=== PATIENT | female | born 1980 | race African-American/Black ===

== ENCOUNTER 2020-01-14 09:03 | Emergency (ER) | payer OTHER ==
[2020-01-14 09:10] VITALS: TEMP 98.5; BMI 24.7
--- NOTE | 2020-01-14 09:30 | PDOC ---
History of Present Illness - General Chief Complaint: Chest Pain Stated Complaint: LFT SHOULDER/ARM PAIN (DISCOMFORT) Time Seen by Provider: 01/14/20 09:28 - History of Present Illness Initial Comments: 01/14/20 10:06 HPI 39 y/o F hx of GERD, pituitary adenoma presenting to the ED with 1 week of chest pain. Pain occurs both at rest and with exertion, and is worse at night. Pt has great difficulty in describing what the pain feels like but denies that if feels like pressure, stabbing or like muscle cramps. Pain radiates to the patients left shoulder, back and upper left arm. she denies any shortness of breath, nausea, vomiting, diaphoresis, unilater leg swelling, hx of blood clots, ocp use. Patient denies HIDALGO, vision change, palpitations, cough, wheezing, orthopena, PND, leg swelling/pain, N/V, F,C, CP, SOB, urinary complaints, hematuria, BPR, abdominal pain, diarrhea, constipation, lightheadedness, weakness, sensory changes. PMHx: as noted above ROS: as noted SHx: Denies Etoh, IVDA, tobacco use Allergies: NKDA ROS: GENERAL/CONSTITUTIONAL: No fever or chills. No weakness. HEAD, EYES, EARS, NOSE AND THROAT: No change in vision. No ear pain or discharge. No sore throat. CARDIOVASCULAR: No chest pain or shortness of breath RESPIRATORY: No cough, wheezing, or hemoptysis. GASTROINTESTINAL: No nausea, vomiting, diarrhea or constipation. GENITOURINARY: No dysuria, frequency, or change in urination. MUSCULOSKELETAL: No joint or muscle swelling or pain. No neck or back pain. SKIN: No rash NEUROLOGIC: No headache, vertigo, loss of consciousness, or change in strength/sensation. ENDOCRINE: No increased thirst. No abnormal weight change HEMATOLOGIC/LYMPHATIC: No anemia, easy bleeding, or history of blood clots. ALLERGIC/IMMUNOLOGIC: No hives or skin allergy. PE: GENERAL: Awake, alert, and fully oriented, in no acute distress HEAD: No signs of trauma, normocephalic, atraumatic EYES: PERRLA, EOMI, sclera anicteric, conjunctiva clear ENT: Auricles normal inspection, hearing grossly normal, nares patent, oropharynx clear without exudates. Moist mucosa NECK: Normal ROM, supple, no lymphadenopathy, JVD, or masses LUNGS: No distress, speaks full sentences, clear to auscultation bilaterally HEART: Regular rate and rhythm, normal S1 and S2, no murmurs, rubs or gallops, peripheral pulses normal and equal bilaterally. MSK: ttp in left upper shoulder, no ttp of chest wall. ABDOMEN: Soft, nontender, normoactive bowel sounds. No guarding, no rebound. No masses EXTREMITIES : Normal inspection, Normal range of motion, no edema. No clubbing or cyanosis NEUROLOGICAL: Cranial nerves II through XII grossly intact. Normal speech, normal gait, no focal sensorimotor deficits SKIN: Warm, Dry, normal turgor, no rashes or lesions noted MDM DDx including but not limited to: acs, pe,pneumonia, Workup: labs, chest x-ray,ekg TX: Scores - HEART score -PERC; pt perc's out - EKG: normal sinus rhythm with sinus arrhythmia , HR 71bpm, WI 186ms, QRS 84ms, QTc 408ms ED course labs unremarkable CXR 2 views of the chest reveal clear well aerated lungs. sharp angles normal mediastinum and intact bones and soft tissues. no acute chest pathology meds: aspirin, tylenol Re-assessment: Pt feeling better after medications. 01/14/20 11:05 Past History - Medical History Allergies/Adverse Reactions: Allergies Allergy/AdvReac Type Severity Reaction Status Date / Time No Known Allergies Allergy Verified 01/14/20 09:07 COPD: No GI Disorders: Yes (GERD) HTN: Yes - Reproductive History Is Patient Now?: No - Immunization History Immunization Up to Date: Yes - Psycho-Social/Smoking History Smoking History: Never smoked - Substance Abuse Hx (Audit-C & DAST Scrn) How often the patient has a drink containing alcohol: Never Score: In Men: 4 or > Positive; In Women: 3 or > Positive: 0 Screen Result (Pos requires Nsg. Audit-10AR): Negative In the last yr the pt used illegal drug/Rx for NonMed reason: No Score: Yes response is considered Positive: 0 Screen Result (Positive result requires Nsg. DAST-10): Negative *Physical Exam - Vital Signs Last Vital Signs Temp Pulse Resp BP Pulse Ox 98.5 F 85 18 149/97 100 01/14/20 09:08 01/14/20 09:08 01/14/20 09:08 01/14/20 09:08 01/14/20 09:08 ED Treatment Course - LABORATORY CBC & Chemistry Diagram: 01/14/20 10:25 01/14/20 10:25 Discharge - Discharge Information Problems reviewed: Yes Clinical Impression/Diagnosis: Chest pain - Admission No - Follow up/Referral Referrals: Augusta Sommers [Primary Care Provider] - Daniel Duval MD [Staff Physician] - Danny Moore MD [Staff Physician] - - Patient Discharge Instructions Patient Printed Discharge Instructions: DI for Chest Pain Additional Instructions: HOME CARE INSTRUCTIONS: For the next few days, avoid physical activities that bring on chest pain. Continue physical activities as directed. Do not smoke and avoid drinking alcohol. Only take [id number] or prescription medicine for pain, discomfort, or fever as directed by your physician. Follow your physician's suggestions for further testing if your chest pain does not go away. Keep any follow-up appointments you made. If there is any problem keeping an appointment, please call to reschedule. SEEK MEDICAL CARE IF: You think you are having problems from the medicine you are taking. Read your medicine instructions carefully. You develop chest pain does not go away, even after treatment. SEEK IMMEDIATE MEDICAL CARE IF: You have increased chest pain or pain that spreads to your arm, neck, jaw, back, or abdomen. You develop shortness of breath, an increasing cough, or you start coughing up blood. You have severe back or abdominal pain, feel nauseous, or vomit You develop severe weakness, fainting, or chills. You have a fever. THESE ARE EMERGENCIES - Do not drive yourself to the hospital. - Post Discharge Activity
[2020-01-14] MEDS ORDERED: ASPIRIN 81 MG CHEWABLE TABLETS PO ONE (09:47)
[2020-01-14] MEDS ORDERED: ACETAMINOPHEN 1000 MG/100 ML VIAL (NON FORMULARY) IVPB ONE (09:48)
[2020-01-14] MEDS ORDERED: ASPIRIN 81 MG CHEWABLE TABLETS ONE (10:03)
[2020-01-14] MEDS ORDERED: ACETAMINOPHEN INJECTION 100 ML IVPB ONE (10:03)
[2020-01-14 10:53] LABS: BASO % 0.7 % (0-2.0); EOS % 0.7 % (0-4.5); HEMATOCRIT 38.3 % (32.4-45.2); HEMOGLOBIN 13.1 GM/dL (10.7-15.3); LYMPH % 34.1 % (8-40); MCH 31.7 pg (25.7-33.7); MEAN CELL VOLUME 93.1 fl (80-96); MEAN PLT VOLUME 8.3 fl (7.5-11.1); MONO % 6.6 % (3.8-10.2); NEUT % 57.9 % (42.8-82.8); PLATELET COUNT 234 K/MM3 (134-434); RBC 4.12 M/mm3 (3.60-5.2); RDW 12.2 % (11.6-15.6); WHITE BLOOD COUNT 6.7 K/mm3 (4.0-10.0)
[2020-01-14 11:26] LABS: ALBUMIN 3.9 g/dl (3.4-5.0); ALK PHOS 72 U/L (45-117); ANION GAP 7 MMOL/L (8-16); BILIRUBIN,TOTAL 0.5 mg/dL (0.2-1); CALCIUM 9.2 mg/dL (8.5-10.1); CHLORIDE 105 mmol/L (98-107); CO2 29 mmol/L (21-32); CREATININE 0.9 mg/dL (0.55-1.3); GLUCOSE,RANDOM 101 mg/dL (74-106); POTASSIUM 3.2 mmol/L (3.5-5.1); SGOT/AST 18 U/L (15-37); SGPT/ALT 31 U/L (13-61); SODIUM 141 mmol/L (136-145); TOT PROT 7.6 g/dl (6.4-8.2)
--- NOTE | 2020-01-14 12:53 | PDOC ---
Documentation entered by Estelita Raymundo SCRIBE, acting as scribe for Stefany Dorado MD. Stefany Dorado MD: This documentation has been prepared by the Breanne teresa Brenda, SCRIBE, under my direction and personally reviewed by me in its entirety. I confirm that the documentation accurately reflects all work, treatment, procedures, and medical decision making performed by me. Attending Attestation - Resident Resident Name: Lina Morales - ED Attending Attestation I have performed the following: I have examined & evaluated the patient, The case was reviewed & discussed with the resident, I agree w/resident's findings & plan, Exceptions are as noted - HPI HPI: 01/14/20 12:43 Agree with resident hpi - Physicial Exam PE: 01/14/20 12:43 agree with resident exam - Medical Decision Making 01/14/20 10:44 39yo F presents to the ED with 1 week of CP Vitals wnl Exam wnl DDx includes ACS vs MSk pain vs PNA vs PE vs GERD HS is <3, pain has been occurring for 1 week+ w/o change in severity, quality, triggers recently. Will obtain tropx1 Pt meets no PERC criteria thus low likelihood PE Plan for labs, CXR, pain control, reassess 01/14/20 12:48 Labs, CXR with no acute changes Pt reports CP has resolved Likely msk pain vs gerd but will refer to cards. Pt also to f/u with Dr. Sommers She is clinically well appearing, stable for DC home I discussed the physical exam findings, ancillary test results and final diagnoses with the patient. I answered all of the patient's questions. The patient was satisfied with the care received and felt comfortable with the discharge plan and treatment plan. The patient will call their primary care physician within 24 hours to arrange follow-up and will return to the Emergency Department with any new, persistent or worsening symptoms. Discharge - Discharge Information Problems reviewed: Yes Clinical Impression/Diagnosis: Chest pain Condition: Stable - Admission No - Follow up/Referral Referrals: Augusta Sommers [Primary Care Provider] - Danny Moore MD [Staff Physician] - Daniel Duval MD [Staff Physician] - - Patient Discharge Instructions Patient Printed Discharge Instructions: DI for Chest Pain Additional Instructions: HOME CARE INSTRUCTIONS: For the next few days, avoid physical activities that bring on chest pain. Do not smoke and avoid drinking alcohol. Only take [id number] or prescription medicine for pain, discomfort, or fever as directed by your physician. Follow up with Dr. Sommers as discussed within 2-3 days. Follow your physician's suggestions for further testing if your chest pain does not go away. Keep any follow-up appointments you made. We have referred you to a machine cloth measurer, make sure you call to make an appointment for follow up within 2-3 days. If there is any problem keeping an appointment, please call to reschedule. Return to the emergency department if you have any new, worsening, or concerning symptoms - Post Discharge Activity
[2020-01-14 13:16] VITALS: BP 145/93; PULSE 69
--- NOTE | 2020-01-15 14:59 | EKG ---
Test Reason : Blood Pressure : / mmHG Vent. Rate : 071 BPM Atrial Rate : 071 BPM P-R Int : 186 ms QRS Dur : 084 ms QT Int : 376 ms P-R-T Axes : 064 030 043 degrees QTc Int : 408 ms NORMAL SINUS RHYTHM WITH SINUS ARRHYTHMIA NONSPECIFIC T WAVE ABNORMALITY ABNORMAL ECG NO PREVIOUS ECGS AVAILABLE Confirmed by Gideon Welsh ([id number]) on 01/15/2020 2:59:14 PM Referred By: Confirmed By:Gideon Welsh
== END 2020-01-14 13:16 | disposition home or self-care (01) ==
LOC: JER 09:03
PROC: 3E0333Z Introduction of Anti-inflammatory into Peripheral Vein, Percutaneous Approach (ICD-10-PCS; principal; 2020-01-14)
DX: R07.9 Chest pain, unspecified (principal)
CPT/HCPCS: 36415; 71046-TC-FY; 80053; 82550; 82553; 84484; 84703; 85025; 93005; 93010; 99285-25; J0131